=== PATIENT | female | born 1950 ===

== ENCOUNTER 2021-08-11 14:28 | Outpatient (CLI) | payer OTHER | END 2021-08-11 14:42 | disposition home or self-care (01) | LOC: RAD 14:28 | PROVIDERS: ATTEND Obstetrics & Gynecology Gynecology | DX: R07.89 Other chest pain (principal) ==

== ENCOUNTER 2025-04-10 05:15 | Day surgery (SDC) | payer OTHER ==
[2025-04-04 08:07] VITALS: BP 136/88
[2025-04-04 08:33] LABS: BASO % 0.7 % (0.1-1.2); EOS # 0.16 (0.04-0.54); EOS % 2.8 % (0.7-7.0); LYMPH # 2.30 (1.18-3.74); LYMPH % 39.8 % (19.3-53.1); MEAN PLATELET VOLUME 10.40 fl (9.4-12.4); MONO # 0.55 (0.24-0.82); MONO % 9.5 % (4.7-12.5); NEUT # 2.72 (1.56-6.13); NEUT % 47.0 % (34.0-71.1); RED CELL DISTRIBUTION WIDTH 13.1 % (11.6-14.4)
[2025-04-04 08:48] LABS: INR 1.01
[2025-04-04 09:06] LABS: URINE APPEARANCE Clear; URINE BILIRRUBIN Negative (NEGATIVE); URINE BLOOD Negative; URINE COLOR Yellow; URINE GLUCOSE Negative (NEGATIVE); URINE KETONE Negative (NEGATIVE); URINE LEUKOCYTE Large; URINE NITRATE Negative; URINE PROTEIN Negative (NEGATIVE); URINE UROBILINOGEN 0.2 E.U./dl
[2025-04-04 09:10] LABS: URINE BACTERIA 859.1 uL (0.0-1933); URINE EPITHELIAL CELLS 22.5 uL (0.0-38.8); URINE RBC 7.6 uL (0.0-20.8); URINE WBC 15.5 uL (0.0-23.2)
[2025-04-04 09:18] LABS: URINE CAST 0.00 uL (0.0-1.40)
[2025-04-04 09:48] LABS: ALT/SGPT 24.0 U/L (12-78); AST/SGOT 29.0 U/L (15-37); BILIRUBIN TOTAL 0.57 mg/dL (0.3-1.2); BUN CREA RATIO 22.0 (7.0-25.0); CREATININE SERUM 0.73 mg/dL (0.55-1.02); GFR 77.3; GLOBULINA 4.7 G/DL (2.4-3.5); GLUCOSE FASTING 80.0 mg/dL (65-100); OSMOLALITY SERUM 270.0 MOSM/KG (275-295)
[~2025-04-10] VITALS: Ht 165.1 cm; Wt 66.7 kg
[~2025-04-10 05:15] MED LIST: HYZAAR 100-251 EACH PO; ORTHO DF 3,7751 EACH PO; SIMVASTATIN5 MG; TOLTERODINE TART1 MG
[2025-04-10] MEDS ORDERED: LIDOCAINE HCL 1%/EPINEPHRINE 20ML VIAL IJ ONE (08:00)
[2025-04-10] MEDS ORDERED: CEFAZOLIN SODIUM 1,000 MG VIAL IV ONE (08:00)
[2025-04-10] MEDS ORDERED: GENTAMICIN SULFATE 40 MG/ML VIAL IV ONE (08:15)
[2025-04-10] MEDS ORDERED: MACROBID 100 M100 MG PO (08:54)
[2025-04-10] MEDS ORDERED: TRAM1TAB98 PO (08:54)
[2025-04-10 12:08] VITALS: O2SAT 100
[2025-04-11 01:07] VITALS: BP 153/91
== END 2025-04-10 12:25 | disposition home or self-care (01) ==
LOC: CIR.AMB 05:15 → EDBD 07:30 → CIR.AMB 07:30
PROVIDERS: ATTEND Obstetrics & Gynecology Gynecology
DX: N81.11 Cystocele, midline (principal)